=== PATIENT | male | born 1955 | race Caucasian/White ===

== ENCOUNTER 2021-11-19 11:00 | Outpatient (CLI) | payer MEDICARE, SELFPAY ==
--- NOTE | 2021-11-19 12:41 | MR_ITS ---
WS: [id number] MRI HEAD WITH CONTRAST WITH ATTENTION TO THE INTERNAL AUDITORY CANALS TECHNIQUE: Sagittal T1, T2 axial, T2 axial flair, axial susceptibility weighted imaging, axial diffus ion weighted images, and coronal T2 images were obtained. Pre and post T1 axial and post T1 coronal i mages. ADC and FSPGR images. Post gadolinium images with attention to the internal auditory canals. A xial fiesta imaging. CLINICAL INFORMATION: SENSORINEURAL HEARING LOSS-BILATERAL/TINNITUS-BILATERAL COMPARISON: None. FINDINGS: No evidence restricted diffusion to suggest acute ischemia. Ventricular system and basal cisterns are patent. Mild small vessel changes. Moderate parenchymal volume loss. Normal posterior fossa. Normal vascular flow voids at the skull base. No extra-axial fluid collections. No evidence of mass or mass effect. Partial opacification LEFT greater than RIGHT mastoid air cells. 12 mm retention cyst LEFT ma xillary sinus No hemosiderin on susceptibly weighted images. Proximal 7th and 8th cranial nerves are normal in appe arance. Normal trigeminal nerve root entry zones. No evidence of enhancing IAC or CP angle mass. Norm al dural venous sinuses. Normal cavernous sinuses and Meckel's cave. No abnormal intracranial enhanc ement. MR/MR iac's wo/w con* [id number] IMPRESSION: 1. No evidence of restricted diffusion to suggest acute ischemia. 2. Mild small vessel changes with moderate parenchymal volume loss. 3. No evidence of enhancing IAC or CP angle mass. Normal trigeminal nerve root entry zones. 4. Normal optic chiasm and pituitary infundibulum. 5. Mucosal thickening in the LEFT greater than RIGHT mastoid air cells. Parana maryuri sinuses are well aerated. 12 mm retention cyst LEFT maxillary sinus.
[2021-11-19] MEDS: gadobenate dimeglumine 20 mL vial IV (13:42)
== END 2021-11-19 11:01 | disposition home or self-care (01) ==
PROVIDERS: Visit Provider Specialist
DX: H90.3 Sensorineural hearing loss, bilateral (principal); H93.13 Tinnitus, bilateral
CPT/HCPCS: 70553

== ENCOUNTER → 2022-04-08 08:45 | Outpatient (BNVA) | payer MEDICARE, SELFPAY | PROVIDERS: Referring Provider Family Medicine; Visit Provider Podiatrist Foot & Ankle Surgery | DX: E11.9 Type 2 diabetes mellitus without complications (principal); G62.9 Polyneuropathy, unspecified; M20.42 Other hammer toe(s) (acquired), left foot; M20.41 Other hammer toe(s) (acquired), right foot; B35.3 Tinea pedis; L84 Corns and callosities | CPT/HCPCS: 99203; 99204 ==

== ENCOUNTER 2024-12-07 08:27 | Outpatient (CLI) | payer MEDICARE, SELFPAY ==
--- NOTE | 2024-12-07 08:31 | CT_ITS ---
WS: [id number] LDCT LUNG CANCER SCREENING HISTORY: HX OF TOBACCO USE TECHNIQUE: Axial imaging performed from the apices to 1 cm below the costophrenic angles. Coronal and sagittal reformats are submitted with axial MIP series. All CT scans at [facility] use at least one of these dose optimization techniques: automated exposure control; mA and/or kV adjustment per patient size (includes targeted exams where dose is matched to clinical indication); or iterative reconstruction. DLP: 73.04 mGy.cm DIvol: Mean CTDIvol: 1.40 (mGy) COMPARISON: None available. Diagnostic quality: Satisfactory Lungs: Well aerated lungs. Spiculated nodule in the RIGHT middle lobe abuts the lung fissure with a mean diameter of 10 mm. There is thickening of the adjacent bronchi. Heart: Normal size heart with no pericardial effusion.. Other findings: Moderate coronary artery calcifications. Mild atherosclerosis thoracic aorta. Mildly dilated pulmonary artery. No mediastinal or hilar adenopathy. Mildly contracted gallbladder. No adrenal mass. CT/CT lung screening 94001 IMPRESSION: LUNG-RADS: 4A-Probably Suspicious FOLLOW UP: 3 Month LDCT OTHER FINDINGS (S MODIFIER): None.
== END 2024-12-07 08:28 | disposition home or self-care (01) ==
LOC: RAD 08:28
PROVIDERS: PCP Family Medicine; Visit Provider Nurse Practitioner Family
DX: Z12.2 Encounter for screening for malignant neoplasm of respiratory organs (principal); Z87.891 Personal history of nicotine dependence; R91.1 Solitary pulmonary nodule; R91.8 Other nonspecific abnormal finding of lung field; I25.10 Atherosclerotic heart disease of native coronary artery without angina pectoris; I70.0 Atherosclerosis of aorta; I28.1 Aneurysm of pulmonary artery; R93.3 Abnormal findings on diagnostic imaging of other parts of digestive tract
CPT/HCPCS: 71271